=== PATIENT | male | born 1960 | race Caucasian/White ===

== ENCOUNTER 2018-08-11 11:01 | Outpatient (RCR) | payer OTHER | END 2018-08-17 | LOC: PT 11:01 | PROVIDERS: ATTEND Specialist | DX: M25.562 Pain in left knee (principal); M62.81 Muscle weakness (generalized); R26.2 Difficulty in walking, not elsewhere classified ==

== ENCOUNTER 2018-08-18 08:00 | Outpatient (RCR) | payer OTHER | END 2018-09-14 | LOC: PT 08:00 | PROVIDERS: ATTEND Specialist | DX: M25.562 Pain in left knee (principal); M62.81 Muscle weakness (generalized); R26.2 Difficulty in walking, not elsewhere classified ==

== ENCOUNTER → 2019-06-25 | Outpatient (CLI) | payer OTHER ==
--- NOTE | 2019-06-25 13:15 | Diagnostic Imaging Report ---
Chest, PA and lateral. History: Bronchitis. Comparison: 06/08/2010. Discussion: The cardiomediastinal silhouette and pulmonary vasculature are within normal limits. The lungs are clear without evidence of consolidation or effusion. There are no acute osseous abnormalities. IMPRESSION: No radiographic evidence of acute cardiopulmonary abnormality. Signed by: Bright Boyd MD on 06/25/2019 1:12 PM
== END ==
LOC: RAD 12:27
PROVIDERS: ATTEND Family Medicine
DX: J40 Bronchitis, not specified as acute or chronic (principal)
CPT/HCPCS: 71046